=== PATIENT | female | born 1940 | race Hispanic/Latino ===

== ENCOUNTER 2019-06-19 12:45 | Observation (INO) | payer OTHER, MEDICARE ==
[~2019-06-19] VITALS: Ht 162.6 cm; Wt 102.6 kg
[2019-06-19 13:59] VITALS: BP 122/70
[2019-06-19] MEDS ORDERED: DESV25TA2 PO (14:49)
[2019-06-19] MEDS ORDERED: DORZ10DR10 OU (14:50)
[2019-06-19] MEDS ORDERED: BRIM5DRO4 OU (14:50)
[2019-06-19] MEDS ORDERED: LEVO50 PO (14:50)
[2019-06-19] MEDS ORDERED: ozempic SQ (14:50)
[2019-06-19] MEDS ORDERED: ALBU8.5H8 IH (14:50)
[2019-06-19] MEDS ORDERED: LISI1TAB28 PO (14:50)
[2019-06-19] MEDS ORDERED: FLUT1AER IH (14:50)
[2019-06-19] MEDS ORDERED: SIMV-43 PO (14:50)
[2019-06-19] MEDS ORDERED: CABE0.5T2 PO (14:50)
[2019-06-19] MEDS ORDERED: OMEP20TA25 PO (14:50)
[2019-06-24] VITALS (24 sets, daily range): BP systolic 102–166; BP diastolic 53–79
[2019-06-24] MEDS: CLINDAMYCIN 900 MG/D5% WATER 50 ML IV SCH ×4 (06:00→15:12)
[2019-06-24] MEDS ORDERED: SODIUM CHLORIDE 0.9% 1000ML 1,000 ML IV ONE (06:18)
[2019-06-24] MEDS ORDERED: BUPIVACAINE/EPI/PF 0.25% 30ML VIAL IJ ONE (06:34)
[2019-06-24] MEDS ORDERED: BACITRACIN 50,000 UNIT VIAL ONE (06:35)
[2019-06-24] MEDS ORDERED: DURAMORPH PF1 MG/ML 10ML AMP IV ONE (06:35)
[2019-06-24] MEDS ORDERED: THROMBIN-JMI 20000 UNIT KIT TP ONE (06:36)
[2019-06-24] MEDS ORDERED: LIDOCAINE PF 2% 5ML ABBOJECT ONE (06:48)
[2019-06-24] MEDS ORDERED: SUCCINYLCHOLINE 200MG/10ML SYR ONE (06:48)
[2019-06-24] MEDS ORDERED: DEXAMETHASONE SOD PHOSPHATE 10MG/ML 1ML VIAL ONE ×2 (06:49→06:54)
[2019-06-24] MEDS ORDERED: NEOSTIGMINE 5MG/5ML SYR IV ONE (06:49)
[2019-06-24] MEDS ORDERED: ONDANSETRON HCL 4 MG/2 ML VIAL ONE (06:49)
[2019-06-24] MEDS ORDERED: GLYCOPYRROLATE 1 MG/5 ML SYRINGE ONE (06:49)
[2019-06-24] MEDS ORDERED: PROPOFOL 10 MG/ML 20ML VIAL IV ONE (06:49)
[2019-06-24] MEDS ORDERED: MIDAZOLAM HCL 1 MG/ML 2ML VIAL ONE (06:49)
[2019-06-24] MEDS ORDERED: ROCURONIUM 10MG/1ML SYR 10 MG/ML ML ONE ×2 (06:50→08:22)
[2019-06-24] MEDS ORDERED: FENTANYL CITRATE PF 50 MCG/1 ML 2ML VIAL ONE (06:50)
[2019-06-24] MEDS ORDERED: LIDOCAINE HCL 4% LTA SOL 4 ML VIAL ONE (06:55)
[2019-06-24] MEDS ORDERED: ARTIFICIAL TEARS 3.5 GM OINTMENT ONE (06:56)
[2019-06-24] MEDS ORDERED: EPHEDRINE SULFATE 50 MG/ML AMPULE ONE (07:47)
[2019-06-24] MEDS ORDERED: FUROSEMIDE 10 MG/ML 4ML VIAL ONE (08:19)
[2019-06-24] MEDS ORDERED: BISA5TAB12 PO (10:23)
[2019-06-24] MEDS: BRIMONIDINE TARTRATE 0.2% 5 ML BOTTLE OU SCH ×2 (10:42→21:00)
[2019-06-24] MEDS ORDERED: PROMETHAZINE HCL 25 MG/ML 1ML AMPULE IM PRN (10:45)
[2019-06-24] MEDS: DEXAMETHASONE SOD PHOSPHATE 4 MG/ML 1ML VIAL IVP SCH ×3 (10:45→21:25)
[2019-06-24] MEDS ORDERED: MORPHINE SULFATE 2 MG/ML 1ML SYG IVP PRN (10:45)
[2019-06-24] MEDS ORDERED: SODIUM CHLORIDE 0.9% 10 ML VIAL IVP PRN (10:45)
[2019-06-24] MEDS ORDERED: HYDROCODONE/ACETAMINOPHEN 5/325 MG TAB PO PRN (10:45)
[2019-06-24] MEDS: LACTATED RINGERS 1000ML 1,000 ML IV SCH ×2 (12:17→23:54)
[2019-06-24] MEDS: PANTOPRAZOLE SODIUM 40 MG TABLET.DR PO SCH (12:19)
[2019-06-24] MEDS: LEVOTHYROXINE 50 MCG TABLET PO SCH (12:19)
[2019-06-24] MEDS: ALBUTEROL SULFATE 0.083% 2.5 MG/3 ML INH IH SCH ×2 (18:45→23:48)
[2019-06-24] MEDS: BUDESONIDE 0.5 MG/2 ML INH IH SCH (18:55)
[2019-06-24] MEDS: DORZOLAMIDE HCL/TIMOLOL MALEAT DROPS 10 ML BOTTLE OU SCH (21:00)
[2019-06-24] MEDS ORDERED: HYDROCHLOROTHIAZIDE 25 MG TABLET PO SCH (21:00)
[2019-06-24] MEDS ORDERED: NON-FORMULARY MEDICATION 1 EACH (Lisinopril/Hydrochlorothiazide (Lisinopril-Hctz 20-12.5 m PO SCH (21:00)
[2019-06-24] MEDS ORDERED: SIMVASTATIN 20 MG TABLET PO SCH (21:00)
[2019-06-24] MEDS ORDERED: LISINOPRIL 20 MG TABLET PO SCH (21:00)
[2019-06-25 03:00] VITALS: BP 107/54
[2019-06-25] MEDS: DEXAMETHASONE SOD PHOSPHATE 4 MG/ML 1ML VIAL IVP SCH (05:28)
[2019-06-25] MEDS: LEVOTHYROXINE 50 MCG TABLET PO SCH (05:28)
[2019-06-25] MEDS: ALBUTEROL SULFATE 0.083% 2.5 MG/3 ML INH IH SCH ×2 (06:22→11:03)
[2019-06-25] MEDS: BUDESONIDE 0.5 MG/2 ML INH IH SCH (06:22)
[2019-06-25 07:30] VITALS: BP 107/60
--- NOTE | 2019-06-25 07:30 | NUR ---
NOTE AAOX3. DR CASTILLO ROUNDING EARLY AND STATES PATIENT CAN BE DISCHARGED HOME TODAY. SHE HAS BEEN WALKING IN THE [place]. HE SPOKE TO PATIENT ABOUT THE IMPORTANCE OF WALKING, FOR THAT WOULD BE HER ONLY THERAPY. FAMILY WAS PRESENT DURING THIS. DENIES ANY NUMBNESS OR TINGLING. CAN WIGGLE TOES AND HAS FULL SENSATION BLE DISTAL AND PROXIMAL. STATES SHE DOES NOT HAVE ANY TINGLING OR NUMBNESS SHE USED TO FEEL POSTERIOR TO BLE BEHIND THE KNEES. SHE HAD HER F/C DC'D AND IS DUE TO VOID. WILL REMOVED DRAIN AND CHANGE DRESSING LATER.
[2019-06-25] MEDS ORDERED: DESVENLAFAXINE SUCCINATE PO SCH (09:00)
[2019-06-25] MEDS: DORZOLAMIDE HCL/TIMOLOL MALEAT DROPS 10 ML BOTTLE OU SCH (09:00)
[2019-06-25] MEDS ORDERED: VENTOLIN HFA IH PRN (09:00)
[2019-06-25] MEDS: PANTOPRAZOLE SODIUM 40 MG TABLET.DR PO SCH (09:00)
[2019-06-25] MEDS ORDERED: BISACODYL 5 MG TABLET.DR PO SCH (09:00)
[2019-06-25] MEDS: BRIMONIDINE TARTRATE 0.2% 5 ML BOTTLE OU SCH (09:00)
--- NOTE | 2019-06-25 10:30 | NUR ---
NOTE DRESSING TO LOWER BACK REMOVED. RAUDEL DRAIN REMOVED AND PATIENT TOLERATED THIS WITH MINOR DISCOMFORT. DRAIN INTACT. INCISION IS CLEAN DRY AND NO DEHISCENCE NOTED, PIERO ALL SECURED. INCISION PAINTED WITH BETADINE AND COVERED IN CLEAN FASHION WITH GAUZE AND SECURED WITH MEDIPORE TAPE. PATIENT IS STILL PENDING TO VOID. SHE HAS BEEN DRINKING PLENTY OF FLUIDS AND HAS BEEN WALKING IN THE [place] SHE WAS INSTRUCTED BY DR CASTILLO.
[2019-06-25 11:00] VITALS: BP 109/47
--- NOTE | 2019-06-25 14:30 | NUR ---
note DISCHARGE INSTRUCTIONS GIVEN TO PATIENT AT THIS TIME. VERBALIZED UNDERSTANDING OF WHAT WAS DISCUSSED WELL PREWRITTEN INSTRUCTIONS FROM DR CASTILLO REGARDING POST SPINAL SURGERY PATIENTS. PATIENT EXPERIENCED SOME PROBLEM OR RATHER TOOK SOME TIME TO BE ABLE TO URINATE POST F/C DC'D. SHE HAD VENEGAS DC'D AT 0600 AND URINATED ABOUT 200 CC EARLIER AND AGAIN ABOUT 15 MINUTES AGO. DENIES ANY DIFFICULTY VOIDING OR FEELS IF SHE HAS A FULL BLADDER. DENIES [place] PAIN AT THIS TIME. DENIES NUMBNESS OR TINGLING, HAS FULL ROM TO ALL EXTREMITIES. DRESSING TO LOWER BACK D/I. REFER TO DC SUMMARY FOR DETAILS.
[2019-06-26] MEDS ORDERED: Cabergoline 0.5 MG PO SCH (09:00)
[2019-06-28] MEDS ORDERED: OZEMPIC 0.5 MG SQ SCH (09:00)
== END 2019-06-25 15:09 | disposition home or self-care (01) ==
LOC: EDSTATUS 14:00 → DAHIP 06-24 05:58 → 4BH 06-24 11:52
PROVIDERS: ADMIT Neurological Surgery; ATTEND Neurological Surgery
DX: M48.061 Spinal stenosis, lumbar region without neurogenic claudication (principal); I10 Essential (primary) hypertension; E11.9 Type 2 diabetes mellitus without complications; E66.9 Obesity, unspecified; D35.2 Benign neoplasm of pituitary gland; J45.909 Unspecified asthma, uncomplicated; Z87.891 Personal history of nicotine dependence; Z99.89 Dependence on other enabling machines and devices; Z79.899 Other long term (current) drug therapy; Z88.0 Allergy status to penicillin
CPT/HCPCS: 63047; 63048; 72100; 82948 ×3; 94640 ×6; 94664; 96365; 96375 ×2; 96376 ×2; A4215; A4221; A4222; A4223; A4344; A4649 ×3; A4663; G0378 ×27; J0330; J1100 ×5; J1940; J2001; J2250; J2274; J2405; J2704; J2710; J3010; J3490 ×5; J7030 ×2; J7120 ×2

== ENCOUNTER → 2019-06-22 | Outpatient (CLI) | payer OTHER, MEDICARE ==
[~2019-06-22] MED LIST: ALBU8.5H8 IH; BISA5TAB12 PO; BRIM5DRO4 OU; CABE0.5T2 PO; DESV25TA2 PO; DORZ10DR10 OU; FLUT1AER IH; LEVO50 PO; LISI1TAB28 PO; OMEP20TA25 PO; SIMV-43 PO; ozempic SQ
== END | disposition home or self-care (01) ==
LOC: RAH 10:07
PROVIDERS: ATTEND Neurological Surgery
DX: M48.061 Spinal stenosis, lumbar region without neurogenic claudication (principal); M51.36 Other intervertebral disc degeneration, lumbar region
CPT/HCPCS: 72148

== ENCOUNTER → 2020-06-09 | Outpatient (CLI) | payer OTHER, MEDICARE ==
[~2020-06-09] MED LIST changes: -LISI1TAB28 PO; +LISI1TAB51 PO
[2020-06-09 11:31] LABS: CREATININE 1.1 mg/dL (0.5-1.5)
== END | disposition home or self-care (01) ==
LOC: LAB 10:30
PROVIDERS: ATTEND Neurological Surgery
DX: M54.16 Radiculopathy, lumbar region (principal)
CPT/HCPCS: 36415; 82565; 84520

== ENCOUNTER → 2020-06-13 | Outpatient (CLI) | payer OTHER, MEDICARE ==
[~2020-06-13] MED LIST changes: +GADODIAMIDE 10 MMOL/20 ML VIAL IV ONE
== END | disposition home or self-care (01) ==
LOC: RAH 10:46
PROVIDERS: ATTEND Neurological Surgery
DX: M47.26 Other spondylosis with radiculopathy, lumbar region (principal); M48.07 Spinal stenosis, lumbosacral region
CPT/HCPCS: 72158; A9579